=== PATIENT | female | born 1930 | race Caucasian/White ===

== ENCOUNTER 2020-02-16 11:42 | Emergency (ER) | payer OTHER ==
[~2020-02-16] VITALS: Ht 152.4 cm; Wt 90.7 kg
[~2020-02-16 11:42] MED LIST: BACITO TP; CEPH500 PO; DOCU100 PO; Dulcolax5 MG PO; FURO20 PO; FURO40 PO; HEMOTO PR; HYDACE10B PO; HYDACE25S PR; HYDCOR2.5C PR; HYDMOR2 PO; LACT10SY PO; LEVFLO500 PO; Miralax17 GM PO; NAPR220 PO; Norco 5-325 Ta1 EACH PO; OMEP20ER PO; ONDA4 PO; OXYACE5T PO; POLY17UD PO; PROACE100; PROM25S PR; PSYL5.85P PO; SENN187 PO; TAMS.4ER PO; TRAM50 PO; [UNRECOGNIZED DRUG - REMARK]
[2020-02-16] MEDS ORDERED: ACET325 PO (12:00)
[2020-02-16] MEDS ORDERED: Norco 5-325 Ta1 EACH PO (14:37)
[2020-02-16] MEDS ORDERED: HYDR1TAB94 PO (14:44)
== END 2020-02-16 15:14 | disposition home or self-care (01) ==
LOC: ER 11:42
DX: M25.511 Pain in right shoulder (principal); M79.651 Pain in right thigh; I10 Essential (primary) hypertension; K21.9 Gastro-esophageal reflux disease without esophagitis; Z88.5 Allergy status to narcotic agent; Z87.442 Personal history of urinary calculi; Z79.899 Other long term (current) drug therapy
CPT/HCPCS: 93971; 99284-25; A9270-GY

== ENCOUNTER 2020-02-20 07:28 | Emergency (ER) | payer OTHER ==
[~2020-02-20] VITALS: Ht 154.9 cm; Wt 93.0 kg
[~2020-02-20 07:28] MED LIST changes: +ACET325 PO; +HYDR1TAB94 PO
[2020-02-20] MEDS ORDERED: OMEP20ER PO (07:38)
[2020-02-20] MEDS ORDERED: Norco 7.5-3251 EACH PO (10:16)
== END 2020-02-20 11:54 | disposition home or self-care (01) ==
LOC: ER 07:28
DX: M24.411 Recurrent dislocation, right shoulder (principal); I10 Essential (primary) hypertension; K21.9 Gastro-esophageal reflux disease without esophagitis; Z87.442 Personal history of urinary calculi; Z88.5 Allergy status to narcotic agent; Z79.899 Other long term (current) drug therapy
CPT/HCPCS: 73020; 73030; 99284-25; A9270-GY

== ENCOUNTER 2020-03-24 11:22 | Emergency (ER) | payer OTHER ==
[~2020-03-24] VITALS: Ht 152.4 cm; Wt 9.5 kg
[~2020-03-24 11:22] MED LIST changes: +Norco 7.5-3251 EACH PO
[2020-03-24] MEDS ORDERED: BISA10S PR (13:04)
[2020-03-24] MEDS ORDERED: SENNA LAXATIVE8.6 MG PO (13:04)
[2020-03-24] MEDS ORDERED: TRAM50 (13:08)
[2020-03-24] MEDS ORDERED: GABA100 (13:08)
[2020-03-24] MEDS ORDERED: NORCO (13:09)
== END 2020-03-24 15:14 | disposition home or self-care (01) ==
LOC: ER 11:22
DX: K59.00 Constipation, unspecified (principal); I10 Essential (primary) hypertension; K21.9 Gastro-esophageal reflux disease without esophagitis; Z87.442 Personal history of urinary calculi; Z88.5 Allergy status to narcotic agent; Z79.899 Other long term (current) drug therapy
CPT/HCPCS: 74018; 99284-25

== ENCOUNTER 2020-04-17 12:16 | Emergency (ER) | payer OTHER ==
[~2020-04-17] VITALS: Ht 152.4 cm; Wt 90.7 kg
[~2020-04-17 12:16] MED LIST changes: +BISA10S PR; +GABA100; +NORCO; +SENNA LAXATIVE8.6 MG PO; +TRAM50
[2020-04-17] MEDS ORDERED: HYDPAM25 PO (14:38)
[2020-04-17] MEDS ORDERED: MIRALAX17 GM PO (14:38)
== END 2020-04-17 15:29 | disposition home or self-care (01) ==
LOC: ER 12:16
DX: K59.00 Constipation, unspecified (principal); F41.9 Anxiety disorder, unspecified; I10 Essential (primary) hypertension; Z87.442 Personal history of urinary calculi; Z79.899 Other long term (current) drug therapy; Z88.5 Allergy status to narcotic agent
CPT/HCPCS: 99283; Q0177

== ENCOUNTER 2020-06-05 15:18 | Inpatient (IN) | payer OTHER ==
[~2020-06-05] VITALS: Ht 157.5 cm; Wt 85.0 kg
[~2020-06-05 15:18] MED LIST changes: +HYDPAM25 PO; +MIRALAX17 GM PO
[2020-06-05 17:28] LABS: BASOPHILS ABSOLUTE AUTO 0.09 K/mm3 (0.00-0.23); BASOPHILS PERCENT AUTO 0 % (0-2); Hematocrit 48.9 % (33.0-51.0); Hemoglobin 15.3 g/dL (11.5-16.0); LYMPHOCYTES ABSOLUTE AUTO 1.39 K/mm3 (0.84-5.20); LYMPHOCYTES PERCENT AUTO 6 % (21-46); MONOCYTES ABSOLUTE AUTO 0.91 K/mm3 (0.16-1.47); MONOCYTES PERCENT AUTO 4 % (4-13); Mean Corpuscular HGB 26.3 pg (26.0-34.0); Mean Corpuscular HGB Conc 31.3 g/dL (31.5-36.5); Mean Corpuscular Volume 84 fL (80-100); Mean Platelet Volume 10.9 fL (9.1-12.4); NRBC ABSOLUTE 0.06 K/mm3 (0.00-0.02); NRBC Auto 0.3 /100 WBC (0.0-0.2); Platelet Count 297 K/mm3 (150-400); RDW Coefficient Variation 19.6 % (11.7-14.2); RDW Standard Deviation 53.1 fL (35.1-46.3); Red Blood Cell Count 5.81 M/mm3 (3.80-5.20); White Blood Cell Count 22.08 K/mm3 (4.00-11.30)
[2020-06-05 17:30] LABS: EOSINOPHILS PERCENT AUTO 0 % (0-6); IMMATURE GRAN ABSOLUTE AUTO 0.22 K/mm3 (0.00-0.10); IMMATURE GRAN PERCENT AUTO 1 % (0-1); NEUTROPHILS ABSOLUTE AUTO 19.47 K/mm3 (1.96-9.15); NEUTROPHILS PERCENT AUTO 88 % (41-73)
[2020-06-05 17:53] LABS: Albumin, Blood 1.8 g/dL (3.4-5.0); Albumin/Globulin Ratio 0.3 (0.8-1.8); Bun/Creatinine Ratio 75.1 (12.0-20.0); Calcium, Blood 9.2 mg/dL (8.5-10.1); Creatinine, Blood 1.97 mg/dL (0.40-1.00); Globulin, Blood 5.7 g/dL (2.2-4.0); Potassium, Blood 5.4 mmol/L (3.5-5.5); Total Protein, Blood 7.5 g/dL (6.4-8.2)
[2020-06-05 18:02] LABS: Troponin I 0.042 ng/mL (0.000-0.040)
[2020-06-05] MEDS ORDERED: HYDROCODONE-AC1 EA11 PO (18:30)
[2020-06-05] MEDS ORDERED: MIRALAX17 GM PO (18:31)
[2020-06-05] MEDS ORDERED: DOK100 M2 PO (18:31)
[2020-06-05 18:48] LABS: Source, Urine Catheter
[2020-06-05 18:56] LABS: Appearance, Urine Turbid (Clear); Blood, Urine 3+ (Neg); Color, Urine Amber (P-Yellow); Glucose Qualitative, Urine Neg (Neg); Ketones, Urine 1+ (Neg); Leukocyte Esterase, Urine 3+ (Neg); Nitrite, Urine Neg (Neg); Protein, Urine 2+ (Neg); Specific Gravity, Urine 1.015 (1.003-1.022); Urobilinogen, Urine 2+ (Normal)
[2020-06-05 19:05] LABS: Bilirubin, Urine 2+ (Neg)
[2020-06-05 19:06] LABS: White Blood Cells, Urine 25-50 /hpf (0-5)
[2020-06-05 19:07] LABS: Amorphous Light (0-Heavy); Bacteria Many /hpf; Red Blood Cells, Urine 0-2 /hpf (0-2); Squamous Epithelial Cells Rare /hpf (Few)
--- NOTE | 2020-06-05 22:05 | NUR ---
PT ARRIVES TO ICU 5 VIA GURNEY FROM ER FOR DX OF SEVERE SEPSIS. ON TURNING TO REMOVE ER LINEN, PT IS NOTED TO HAVE VERY LARGE DECUBITIS ULCER TO COCCYX/SACRUM, STRONG PUTRID ODOR IS NOTED, LARGE AMOUNT OF PURULENT DRAINAGE FROM WOUND, DARK BROWN/GREEN COPIOUS AMOUNTS OF DRAINAGE, WOUND IS CLEANSED WITH SALINE AND PATTED DRY, MEASURED AND PHOTOS OBTAINED, ALGINATE PACKING APPLIED, FOAM DRESSING APPLIED AND COVERED WITH ABD PADS, WILL CHANGE PRN, SEE PHOTOS. PRESSURES SOFT BUT MAP MAINTAINING AT THIS TIME, WILL MONITOR, START LEVOPHED GTT PER ORDERS IF MAP DECLINES, AFIB WITH RVR NOTED, AMIODARONE GTT INFUSING AT 1 MG/MIN. PT IS ABLE TO STATE THAT SHE IS IN [facility], THE PRESIDENT IS FILI, AND THAT SHE IS AT [facility] HOWEVER WHEN ASKED QUESTIONS REGARDING HER MEDICAL HISTORY, MEDICATIONS, ADLS, ETC, SHE REFERS THIS RN TO EITHER HER NEIGHBOR OR GRANDDAUGHTER AND STATES THAT THE PERSON SHE INDICATES HAS HER "RECORDS" SHE IS UNCLEAR REGARDING WHETHER IT IS A FRIEND OR DAUGHTER THAT LIVES NEXT DOOR OR LOCALLY FOR ASSISTANCE.
--- NOTE | 2020-06-05 23:05 | NUR ---
HYPOTENSION NOTED, LEVOPHED GTT STARTED PERIPHERALLY, DR LAYTON ARRIVES TO ICU, DISCUSSED NEED FOR IMPROVED IV ACCESS, PLAN FOR CENTRAL LINE AT THIS TIME. IV TO LEFT WRIST LEAKING FROM INSERTION SITE, WILL DC.
--- NOTE | 2020-06-05 23:45 | NUR ---
CENTRAL LINE PLACED TO RIGHT IJ BY DR LAYTON, PLACEMENT VERIFIED WITH CXR AND CONFIRMED BY DR LAYTON. LEVOPHED INFUSION MOVED TO CENTRAL LINE, SEE ICU FLOWSHEET FOR TITRATIONS. MD AWARE OF HYPOTENSION AND HEART RATE, PLAN FOR NS BOLUX 500 ML X 2 TO COMPLETE SEPSIS 30 ML/KG FLUID BOLUS IN ADDITION TO LEVOPHED.
--- NOTE | 2020-06-06 01:15 | NUR ---
SPOKE WITH DR GOMEZ REGARDING PT CONTINUED HYPOTENSION AND TACHYCARDIA, VASOPRESSIN ORDERED, WILL ADMINISTER WHEN AVAILABLE FROM PHARMACY.
--- NOTE | 2020-06-06 04:30 | NUR ---
PT FULLY AWAKE FOR ORAL CARE AND REPOSITIONING AT THIS TIME, SHE STATES "I'M SUPPOSED TO BE ON HOSPICE" THAT SHE SPOKE WITH "DR JOHNSON" AND SHE DOES ANSWER THAT YES SHE HAS A BRIGHT PINK PIECE OF PAPER THAT BOTH SHE AND DR JOHNSON SIGNED THAT STATE THAT SHE DOES NOT WANT TO RESUSCITATION. WILL NOTIFY DR GOMEZ.
[2020-06-06 05:04] LABS: BASOPHILS ABSOLUTE AUTO 0.08 K/mm3 (0.00-0.23); BASOPHILS PERCENT AUTO 0 % (0-2); Hematocrit 37.9 % (33.0-51.0); Hemoglobin 12.2 g/dL (11.5-16.0); LYMPHOCYTES PERCENT AUTO 3 % (21-46); MONOCYTES ABSOLUTE AUTO 0.86 K/mm3 (0.16-1.47); MONOCYTES PERCENT AUTO 4 % (4-13); Mean Corpuscular HGB 26.6 pg (26.0-34.0); Mean Corpuscular HGB Conc 32.2 g/dL (31.5-36.5); Mean Corpuscular Volume 83 fL (80-100); Mean Platelet Volume 10.8 fL (9.1-12.4); NRBC ABSOLUTE 0.06 K/mm3 (0.00-0.02); NRBC Auto 0.2 /100 WBC (0.0-0.2); Platelet Count 250 K/mm3 (150-400); RDW Coefficient Variation 19.2 % (11.7-14.2); RDW Standard Deviation 53.2 fL (35.1-46.3); Red Blood Cell Count 4.59 M/mm3 (3.80-5.20); White Blood Cell Count 24.89 K/mm3 (4.00-11.30)
[2020-06-06 05:10] LABS: EOSINOPHILS PERCENT AUTO 0 % (0-6); IMMATURE GRAN ABSOLUTE AUTO 0.23 K/mm3 (0.00-0.10); IMMATURE GRAN PERCENT AUTO 1 % (0-1); NEUTROPHILS ABSOLUTE AUTO 23.02 K/mm3 (1.96-9.15); NEUTROPHILS PERCENT AUTO 93 % (41-73)
[2020-06-06 05:30] LABS: Albumin, Blood 1.9 g/dL (3.4-5.0); Albumin/Globulin Ratio 0.5 (0.8-1.8); Bilirubin, Total 1.3 mg/dL (0.1-1.0); Bun/Creatinine Ratio 75.4 (12.0-20.0); Calcium, Blood 8.3 mg/dL (8.5-10.1); Creatinine, Blood 1.75 mg/dL (0.40-1.00); Globulin, Blood 4.2 g/dL (2.2-4.0); Total Protein, Blood 6.1 g/dL (6.4-8.2)
--- NOTE | 2020-06-06 06:17 | NUR ---
PT HAS TOLERATED TURNS EVERY 2 HOURS THIS SHIFT, SHE IS NOTED TO COMPLAIN OF MORE PAIN WHEN TURNED TO HER LEFT SIDE. AT EACH TIME THAT THIS RN HAS AWAKENED PT SHE STATES THAT SHE JUST WANTS TO SLEEP. THIS AM SHE INFORMED THIS RN THAT SHE IS SUPPOSED TO BE ON HOSPICE AND DOES ANSWER THAT YES, SHE HAS A BRIGHT PINK CARDSTOCK TYPE PAPER THAT BOTH SHE AND HER DOCTOR SIGNED TO INDICATE HER WISHES AND SHE STATES THAT "IT'S IN MY RECORDS" THIS WAS DISCUSSED WITH SENIOR ENGINEERING TECHNICIAN AND AT THIS TIME, IT IS NOT ABLE TO BE LOCATED IN HOSPITAL RECORDS, PALLIATIVE CARE CONSULT FOR ADVANCED CARE PLANNING PLACED AND PLAN TO ATTEMPT TO LOCATE POLST THIS AM. DISCUSSED CONTINUED AFIB WITH RVR WELL PRESSOR REQUIREMENTS WITH DR GOMEZ THIS AM, NO NEW ORDERS REGARDING RATE CONTROL OF THIS TIME. PT HAS REMAINED ABLE TO STATE THAT SHE IS IN [facility], THAT FILI IS THE PRESIDENT, THAT SHE WAS BROUGHT IN BY AMBULANCE FOR CHIEF COMPLAINT OF COCCYX PAIN. 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 DUMONT CONTINUES TO DRAIN TURBID, FOUL SMELLING URINE TO GRAVITY, 275 ML THIS SHIFT. CENTRAL LINE PLACED TO RIGHT IJ BY DR LAYTON FOR PRESSORS AT 2345 THIS SHIFT.
--- NOTE | 2020-06-06 07:40 | NUR ---
DR. GOULDTRATE UPDATED ON PATIENT'S STATUS. INFORMED THAT PATIENT ON AMIO, LEVOPHED MAXED OUT AND VASOPRESSIN. INFORMED SBP IN THE 60S AND HR UP TO THE 170S. INFORMED THAT IT IS HARD TO UNDERSTAND PATIENT BUT THAT IT APPEARS THAT SHE IS SAYING SHE IS READY "TO GO". INFORMED THAT MESSAGE HAS BEEN LEFT WITH PALLIATIVE CARE TO SEE PATIENT RIGHT AWAY THIS AM. NO ORDERS RECEIVED AT THIS TIME.
--- NOTE | 2020-06-06 08:02 | NUR ---
ISTRATE CALLED AND INFORMED OF INCREASE IN LEVOPHED. ORDERED FOR SODIUM BICARB BOLUS AND TO CONSULT FIRE PREVENTION CHIEF.
--- NOTE | 2020-06-06 08:05 | NUR ---
INITIAL ASSESSMENT PATIENT ORIENTED TO SELF, HOSPITAL, TOWN, FAMILY, FOLLOWING DIRECTIONS. PATIENT ANXIOUS AT TIMES. FLAT AFFECT NOTED. PATIENT TABLE MOUNTAIN. SPEECH GARBLED AND INCOMPREHENSIBLE AT TIMES. DISLOCATED R SHOULDER AND R RIB FX REPORTED BY SUPERVISOR SHAVING AND SPLITTING RN. PATIENT WEAK BUT ABLE TO MOVE ALL EXTREMITIES. PATIENT BEING GIVEN PRN FENTANYL FOR COMPLAINTS OF GENERALIZED PAIN AND PAIN TO COCCYX. TUFT OF HAIR NOTED ABOVE COCCYX. PATIENT HAS TEMP OF 99.1 DEGREES FAHRENHEIT. PATIENT SATTING 90% AND GREATER ON 3 TO 5 L NC. LUNGS COARSE T/O. PATIENT IN A. FIB, HR 140S TO 170S. SBP 50S TO 80S. PULSES FAINT. ABDOMEN TENDER TO PALPATION. HYPOACTIVE BS NOTED. DATE OF LAST BM UNKNOWN. PATIENT NPO AT THIS TIME. TEMP PROBE DUMONT IN PLACE DRAINING CLOUDY, MATT COLORED URINE WITH SEDIMENT NOTED. SKIN PALE, FRAGILE, WITH SCATTERED BRUISES NOTED. BILAT TOES PURPLE IN COLOR. CAP REFILL LESS THAN 3 SECONDS. MUCOUS MEMBRANES DRY. PRESSURE SORES TO BILAT HEELS. LARGE DECUB ULCER TO COCCYX. AREA CLEANSED, CALCIUM ALGINATE APPLIED INTO WOUND AND TUNNELING AND NEW DRESSINGS APPLIED. NS TKO, SODIUM BICARB AT 125 MLS/ HOUR, VASOPRESSIN AT 0.04 UNITS/ MINUTE, AMIODARONE AT 0.5 MG/ MINUTE, LEVOPHED AT 24 MCG/ MINUTE. SODIUM BICARB BOLUS INFUSING. BED LOW, CALL LIGHT IN REACH. WILL CONTINUE TO MONITOR PATIENT FREQUENTLY THROUGHOUT SHIFT.
[2020-06-06 08:53] LABS: Vancomycin, Random 12.2 ug/mL
--- NOTE | 2020-06-06 12:00 | NUR ---
PATIENT AFEBRILE. NO SIGNS OF PAIN NOTED. PATIENT OLIGURIC; ONLY 50 CC OF URINE OUTPUT THIS SHIFT. DR. NOYOLA AWARE. HR 150S TO 160S. SBP 70S TO LOW 100S.
--- NOTE | 2020-06-06 15:12 | NUR ---
Pt seen for plan of care. Review of pt with intesivist and nursing. Contacted pt home health agency to get history. [facility] staff state pt refusing most care and struggles to accept help. Their plan was to try to get pt transitioned to hospice care. Contacted APS to see if we could contact next of kin. APS contacted her long time friend and neighbor who pt designated as a decision maker. Pt estranged from her family confirmed by [employer] and APS. Her friend was in to see her pt treats her like a grandaughter. She was distraught and tearful. Relayed their sturggles to get her to accept help. Reassured her we will keep her comfortable nad treat her with respect. Will get chaplian support for family. Palliative care will monitor for comfort and support to family.
--- NOTE | 2020-06-06 16:04 | NUR ---
PATIENT CHANGED TO COMFORT CARE SHORT TIME AGO. PATIENT'S FAMILY MEMBER IN ROOM WITH PATIENT. ALL IV DRIPS HAVE BEEN TURNED OFF. PATIENT HAS BEEN GIVEN PRN ROXICODONE AND ATIVAN TO HELP WITH PAIN AND ANXIETY. PATIENT APPEARS CONTENT AT THIS TIME. CURTAINS CLOSED AT THIS TIME AND FAMILY MEMBER IS BATHING PATIENT IN HER BED. WILL CHECK ON PATIENT AGAIN SHORTLY.
--- NOTE | 2020-06-06 17:11 | NUR ---
SHIFT SUMMARY PATIENT ORIENTED TO [facility], FOLLOWING COMMANDS THIS MORNING. PATIENT DIFFICULT TO UNDERSTAND AT TIMES BECAUSE OF GARBLED SPEECH. ANDREAFSKI. TMAX OF 99.[address] MOSQUERA CAME TO SEE PATIENT THIS AM. PATIENT CONTINUED ON MAX RATE OF LEVOPHED AND VASOPRESSOR, WELL SEVERAL FLUID BOLUSES, FOR HYPOTENSION. PATIENT REMAINED ON AMIODARONE DRIP FOR A FIB WITH HR UP TO THE 170S. PATIENT GIVEN PRN FENTANYL FOR COMPLAINTS OF GENERALIZED PAIN AND PAIN IN COCCYX. PALLIATIVE CARE SPOKE WITH [facility], PATIENT'S HOME HEALTH SERVICE, TRIED TO CALL FRIEND KJ ON FACE SHEET, AND DID SPEAK WITH PATIENT'S ADOPTIVE GRANDCHILD. IT WAS DETEREMINED AFTER MUCH DISCUSSION THAT PATIENT BE CHANGED TO COMFORT CARE. PATIENT WAS STATING THIS MORNING "I WANT TO GO". PATIENT REMAINED NPO. NO BM THIS SHIFT. SCANT AMOUNT OF DARK MATT, CLOUDY URINE WITH SEDIMENT OUT THIS SHIFT. NO CHANGE TO SKIN. PATIENT REPOSITIONED THROUGHOUT SHIFT. ALL IVS SALINE LOCKED. ADOPTED GRAND-DAUGHTER AT BEDSIDE AT THIS TIME. PATIENT WILL BE TRANSFERRED TO MEDICAL FLOOR, ROOM 302 SHORTLY.
--- NOTE | 2020-06-06 17:39 | NUR ---
Spiritual care note: Provided business and financial counsel and comfort to pt and "adoptive grand-daughter" Chastity. Mrs. Valdez is Buddhist and was appreciaitve of rosary and prayer. Chastity was tearful and loving. She states that pt has missed her spouse who 20+ years ago. Chastity feels guilt that pt will pass in hospital as "she wants to at home." RN medicated for pain/anxiety and Mrs. Valdez appears to be sleeping. Pt declined tankerman. I will remain available.
--- NOTE | 2020-06-06 18:00 | NUR ---
PATIENT SUCCESSFULLY TRANSFERRED TO MEDICAL FLOOR. BELONGINGS SENT WITH PATIENT. ADOPTED GRAND DAUGHTER FOLLOWED.
--- NOTE | 2020-06-06 18:38 | NUR ---
RECEIVED FROM ICU5 BY BED TO RM 302. SHE IS DROWSY BUT AROUSED WITH ALL THE MOVEMENT OVER TO THE NEW BED AND REPOSITIONING. I ALSO PUT A MEPILEX OVER HER SEVERE COCCYX DECUBITUS ULCER. IT IS VERY FOUL SMELLING AND MOIST. O2 2L NC. DUMONT WITH A LITTLE TEA COLORED URINE IN THE TUBING. FOAM DRESSINGS NOTED ON BOTH HEELS. HER FRIEND ADOPTED GRANDDAUGHTER REYNA IS AT THE BEDSIDE. I GAVE 1 DOSE OF ROXICODONE AFTER WE GOT HER SETTLED BECAUSE SHE MOANED SOME.
[2020-06-07] MEDS ORDERED: TRAM50 PO (03:34)
--- NOTE | 2020-06-07 07:54 | NUR ---
patient slept quietly between repositioning and personal care. Breathing was regular and lung sounds were clear with scant crackles in dependent areas until 0600 when it was noted that patient was starting to sound loose in her upper airways after repositioning and pain and anxiety meds. Spoke with oncoming RN and charge about getting Yoli a lift room, and speaking with hospice about getting her something stronger like Roxynol instead of oxycodone wound dressing was changed 3 times overnight due to seepage.
--- NOTE | 2020-06-07 15:10 | NUR ---
pt not showing physical signs of discomfort. Pt progressing plan is to keep here.
--- NOTE | 2020-06-07 16:14 | NUR ---
PATIENT REMAINS ON COMFORT CARE AND HAS BEEN SLEEPING RESTFULLY ALL SHIFT WITHOUT ANY INDICATION OF PAIN OR DISCOMFORT. REPOSITIONED Q2HRS PER COMFORT CARE PROTOCOL. DRESSING CHANGED TO COCCYX; NO CHANGE IN CONDITION. MOTTLING NOTED TO BLE. SOME SLIGHT SECRETIONS. WILL CONTINUE TO MONITOR AND PROVIDE CARE PER COMFORT CARE PROTOCOLS.
--- NOTE | 2020-06-07 16:20 | NUR ---
Spiritual care note: No family present on several visits today. Pt was not responsive and appeared to be sleeping peacefully. Prayer provided at bedside. I will remain available to family.
--- NOTE | 2020-06-07 19:00 | NUR ---
COMFORT CARE APPEARS TO BE RESTING AT THIS TIME. BED REMAINS IN LOWEST POSITION. CALL LIGHT WITHIN REACH. CONTINUE WITH CURRENT PLAN OF CARE.
--- NOTE | 2020-06-07 21:00 | NUR ---
COMFORT CARE APPEARS TO BE RESTING WITHOUT ANY NEEDS AT THIS TIME. BED IN LOWEST POSITION. CALL LIGHT WITHIN REACH. CONTINUE WITH CURRENT PLAN OF CARE.
--- NOTE | 2020-06-07 23:00 | NUR ---
COMFORT CARE APPEARS TO BE RESTING AT THIS TIME. REPOSITIONED. NO ACUTE NEEDS NOTED. BED IN LOWEST POSTIION. CALL LIGHT WITHIN REACH. CONTINUE WITH CURRENT PLAN OF CARE.
--- NOTE | 2020-06-08 05:00 | NUR ---
COMFORT CARE APPEARS TO BE RESTING. NO ACUTE NEEDS AT THIS TIME. BED IN LOWEST POSITION; ALARM ON. CALL LIGHT WITHIN REACH. CONTINUE WITH CURRENT PLAN OF CARE.
--- NOTE | 2020-06-08 07:35 | NUR ---
SHIFT SUMMARY APPEARED TO REST MUCH OF THE NIGHT. RESPONSE TO PAINFUL STIMULI WITH REPOSITIONING. RESPIRATIONS BECAME MORE WET DURING THE NIGHT. SCAPOLAMINE PATCH PLACED BEHIND L EAR. REPOSITIONED DURING THE NIGHT. DRESSING CHANGED PRIOR TO SHIFT END. NO OTHER ACUTE CHANGES NOTED. BED REMAINS IN LOWEST POSITION; ALARM ON. CALL LIGHT WITHIN REACH. CONTINUE WITH CURRENT PLAN OF CARE. REPORT GIVEN TO ONCOMING RN.
--- NOTE | 2020-06-08 11:42 | NUR ---
PAL CARE comfort care visit - Pt is unresponsive to voice or touch. Noisy, upper airway secretions noted and slowing RR of 8-10 resp/min. Also noted brief apnic spells. RN applied scopolomine patch on operation shift supervisor. Mottling of soles of feet and fingers noted. Scant dark yellow/brown urine noted in baez drainage bag. Case conferenced with pt's RN. Pt had been repositioned recently. Sl furrowed brow noted but no change or response to moving arm to reposition. Warm washcloth to face and neck for personal care/cleaning. No family at bedside currently. Pt is actively dying at this time. Will return when family visiting if needed or requested. cooking casing and drying supervisor has info that family provided re: body donation at to.
--- NOTE | 2020-06-08 16:49 | NUR ---
PATIENT AT 1641. NO FAMILY PRESENT AT THIS TIME. SPOKE TO "ADOPTED DAUGHTER" KJ AND PT'S NIECE ADY BY PHONE TO REPORT PT'S . KJ WILL BRING BODY DONATION CARD THIS EVENING AFTER SHE GETS OFF WORK.
--- NOTE | 2020-06-08 18:20 | NUR ---
Spiritual care note: No family present at time of visit. Yoli's breathing is much diferent from yesterday, and she apears to be very near end-of-life. She seems comfortable and well cared-for by nursing. Silent prayer provided. [employer] services will remain available.
== END 2020-06-08 16:44 | DRG 871 ==
LOC: ER 15:18 → ICUE 19:47 → MEDS 19:47 → ERHOLD 19:47 → ICUE 22:00 → MEDS 06-06 18:02
PROVIDERS: Physician Assistant; ADMIT Internal Medicine
PROC: 02HV33Z Insertion of Infusion Device into Superior Vena Cava, Percutaneous Approach (ICD-10-PCS; principal; 2020-06-05)
PROC: 3E043XZ Introduction of Vasopressor into Central Vein, Percutaneous Approach (ICD-10-PCS; 2020-06-05)
DX: A41.9 Sepsis, unspecified organism (principal); L89.154 Pressure ulcer of sacral region, stage 4; R65.21 Severe sepsis with septic shock; I21.A1 Myocardial infarction type 2; E87.2 Acidosis; E87.0 Hyperosmolality and hypernatremia; N17.9 Acute kidney failure, unspecified; N39.0 Urinary tract infection, site not specified; I10 Essential (primary) hypertension; Z51.5 Encounter for palliative care; K21.9 Gastro-esophageal reflux disease without esophagitis; E88.09 Other disorders of plasma-protein metabolism, not elsewhere classified; Z66 Do not resuscitate; F03.90 Unspecified dementia, unspecified severity, without behavioral disturbance, psychotic disturbance, mood disturbance, and anxiety; B95.2 Enterococcus as the cause of diseases classified elsewhere; B96.20 Unspecified Escherichia coli [E. coli] as the cause of diseases classified elsewhere; I48.91 Unspecified atrial fibrillation
CPT/HCPCS: 36415; 36556; 51702; 71045; 74176; 80053; 80202; 81001; 83605; 83690; 83735; 84484; 85025; 86850; 86900; 86901; 87077; 87086; 87186; 93005; 93010; 96365-59; 96375-59; 99285-25; A9270; C1751; J0282; J0692; J1170; J2060; J2310; J2405; J2543; J3010; J3370; J7030; J7040; J7060; J7070; J7120; P9046